=== PATIENT | female | born 1990 | race Caucasian/White ===

== ENCOUNTER 2016-10-10 16:55 | Emergency (ER) | payer OTHER ==
[2016-10-10] MEDS ORDERED: SODIUM CHLORIDE 0.9% 1,000 ML IV STA (19:17)
[2016-10-10] MEDS ORDERED: HYDROmorphone 1 MG/ML 1 ML SYRINGE IVP STA (19:17)
[2016-10-10] MEDS ORDERED: ONDANSETRON 4 MG/2 ML VIAL IVP STA (19:17)
--- NOTE | 2016-10-10 19:33 | ED ---
Abdominal Pain HPI - General Chief Complaint: Abdominal Pain Stated Complaint: Abdominal Pain Time Seen by Provider: 10/10/16 19:11 Source: patient, RN notes reviewed Mode of arrival: ambulatory Limitations: no limitations - History of Present Illness Initial Comments: 26-year-old female presents to the emergency Department chief complaint of epigastric abdominal pain. Patient states that she has had this pain for the last 2 days however she's been having pain for the last week or so. Patient states epigastric pain that radiates to the back. Patient states that she hasn' t had any nausea or vomiting with it. Patient states she does have a history of pancreatitis they've never found a cause for why she does have this. Patient states that she went to urgent care today and was referred here. Patient seen changes of bowel or bladder habits. Patient denies any fever chills with this. Patient states that gallbladder that was negative. Patient states that she was concerned due to the fact that she was on the pain that she thought that she should be evaluated.Patient denies any recent fever, chills, shortness of breath, chest pain, nausea vomiting, numbness or tingling, dysuria or hematuria, constipation or diarrhea, headaches or visual changes, or any other current symptoms. - Related Data Home Medications Medication Instructions Recorded Confirmed Biotin 5 mg PO HS 01/24/16 10/10/16 Cholecalciferol [Vitamin D3] 1,000 unit PO HS 01/24/16 10/10/16 Coconut Oil Tab 1 cap PO HS 01/24/16 10/10/16 Ferrous Sulfate [Iron (65 MG 325 mg PO HS 01/24/16 10/10/16 Elemental)] Ibuprofen [Motrin] 800 mg PO Q8H PRN 01/24/16 10/10/16 Multivitamins, Thera [Multivitamin] 1 tab PO HS 01/24/16 10/10/16 buPROPion HCL [Wellbutrin XL] 300 mg PO DAILY 10/10/16 10/10/16 lamoTRIgine [LaMICtal] 150 mg PO DAILY 10/10/16 10/10/16 Allergies Allergy/AdvReac Type Severity Reaction Status Date / Time No Known Allergies Allergy Verified 10/10/16 19:12 Review of Systems ROS Statement: Those systems with pertinent positive or pertinent negative responses have been documented in the HPI. ROS Other: All systems not noted in ROS Statement are negative. Past Medical History Additional Past Medical History / Comment(s): pancreatitis History of Any Multi-Drug Resistant Organisms: None Reported Past Surgical History: Section Past Psychological History: Anxiety, Depression Smoking Status: Current every day smoker Past Alcohol Use History: None Reported Past Drug Use History: Marijuana General Exam - General Exam Comments Initial Comments: General: The patient is awake and alert, in no distress, and does not appear acutely ill. Eye: Pupils are equal, round and reactive to light, extra-ocular movements are intact; there is normal conjunctiva bilaterally. No signs of icterus. Ears, nose, mouth and throat: There are moist mucous membranes. Neck: The neck is supple, there is no tenderness. Cardiovascular: There is a regular rate and rhythm. No murmur, rub or gallop is appreciated. Respiratory: Lungs are clear to auscultation, respirations are non-labored, breath sounds are equal. No wheezes, stridor, rales, or rhonchi. Gastrointestinal: Soft, non-distended, epigastric tenderness of the abdomen without masses or organomegaly noted. There is no rebound or guarding present. No CVA tenderness. Bowel sounds are unremarkable. Back: There is no tenderness to palpation in the midline. There is no obvious deformity. No rashes noted. Musculoskeletal: Normal ROM, no tenderness, There is no pedal edema. There is no calf tenderness or swelling. Sensation intact. Pulses equal bilaterally 2+. Neurological: CN II-XII intact, There are no obvious motor or sensory deficits. Coordination appears grossly intact. Speech is normal. Skin: Skin is warm and dry and no rashes or lesions are noted. Psychiatric: Cooperative, appropriate mood & affect, normal judgment. Limitations: no limitations Course Vital Signs 10/10/16 16:59 Temperature 97.8 F Pulse Rate 88 Respiratory 20 Rate Blood Pressure 121/74 O2 Sat by Pulse 99 Oximetry Medical Decision Making - Medical Decision Making 26-year-old female presents emergency department chief complaint abdominal pain. Patient was seen at [facility] beginning of the week and diagnosed with gastritis. Patient states she continues to have the same symptoms. At this time patient's lab work is reviewed. Patient has no evidence of pancreatitis. Patient has no white blood cell count. Patient's liver enzymes are stable as well. At this time she is feeling better with medications given. This time we discussed patient's symptoms are most consistent with gastritis. She does have a follow-up with GI. We discussed continue with that appointment. We did discuss return parameters. We discussed all the patient's questions and other etiologies. Patient stated that she understood she is in agreement plan all questions have been answered. She will be discharged. - Lab Data Result diagrams: 10/10/16 19:30 10/10/16 19:30 Lab Results 10/10/16 10/10/16 10/10/16 Range/Units 19:30 19:30 19:30 WBC 9.3 (3.8-10.6) k/uL RBC 4.43 (3.80-5.40) m/uL Hgb 13.9 (11.4-16.0) gm/dL Hct 41.9 (34.0-46.0) % MCV 94.6 (80.0-100.0) fL MCH 31.4 (25.0-35.0) pg MCHC 33.2 (31.0-37.0) g/dL RDW 11.9 (11.5-15.5) % Plt Count 297 (150-450) k/uL Neutrophils % 54 % Lymphocytes % 30 % Monocytes % 5 % Eosinophils % 8 % Basophils % 0 % Neutrophils # 5.1 (1.3-7.7) k/uL Lymphocytes # 2.8 (1.0-4.8) k/uL Monocytes # 0.4 (0-1.0) k/uL Eosinophils # 0.8 H (0-0.7) k/uL Basophils # 0.0 (0-0.2) k/uL Sodium 140 (137-145) mmol/L Potassium 4.0 (3.5-5.1) mmol/L Chloride 105 (98-107) mmol/L Carbon Dioxide 26 (22-30) mmol/L Anion Gap 9 mmol/L BUN 10 (7-17) mg/dL Creatinine 0.63 (0.52-1.04) mg/dL Est GFR (MDRD) Af Amer >60 (>60 ml/min/1.73 sqM) Est GFR (MDRD) Non-Af >60 (>60 ml/min/1.73 sqM) Glucose 89 (74-99) mg/dL Plasma Lactic Acid Zander (0.7-2.0) mmol/L Calcium 9.1 (8.4-10.2) mg/dL Total Bilirubin 1.0 (0.2-1.3) mg/dL AST 21 (14-36) U/L ALT 29 (9-52) U/L Alkaline Phosphatase 49 (38-126) U/L Total Protein 7.2 (6.3-8.2) g/dL Albumin 4.4 (3.5-5.0) g/dL Amylase 61 (30-110) U/L Lipase 180 (23-300) U/L Urine Color Yellow Urine Appearance Cloudy H (Clear) Urine pH 7.5 (5.0-8.0) Ur Specific [place] 1.015 (1.001-1.035) Urine Protein Negative (Negative) Urine Glucose (UA) Negative (Negative) Urine Ketones Negative (Negative) Urine Blood Negative (Negative) Urine Nitrate Negative (Negative) Urine Bilirubin Negative (Negative) Urine Urobilinogen <2.0 (<2.0) mg/dL Ur Leukocyte Esterase Trace H (Negative) Urine RBC 3 (0-5) /hpf Urine WBC 7 H (0-5) /hpf Ur Squamous Epith Cells 2 (0-4) /hpf Amorphous Sediment Rare H (None) /hpf Urine Bacteria Many H (None) /hpf Urine Mucus Few H (None) /hpf Urine HCG, Qual (Not Detectd) Urine Opiates Screen Not Detected (NotDetected) Ur Oxycodone Screen Not Detected (NotDetected) Urine Methadone Screen Not Detected (NotDetected) Ur Propoxyphene Screen Not Detected (NotDetected) Ur Barbiturates Screen Not Detected (NotDetected) U Tricyclic Antidepress Not Detected (NotDetected) Ur Phencyclidine Scrn Not Detected (NotDetected) Ur Amphetamines Screen Not Detected (NotDetected) U Methamphetamines Scrn Not Detected (NotDetected) U Benzodiazepines Scrn Not Detected (NotDetected) Urine Cocaine Screen Not Detected (NotDetected) U Marijuana (THC) Screen Detected H (NotDetected) 10/10/16 10/10/16 Range/Units 19:30 19:30 WBC (3.8-10.6) k/uL RBC (3.80-5.40) m/uL Hgb (11.4-16.0) gm/dL Hct (34.0-46.0) % MCV (80.0-100.0) fL MCH (25.0-35.0) pg MCHC (31.0-37.0) g/dL RDW (11.5-15.5) % Plt Count (150-450) k/uL Neutrophils % % Lymphocytes % % Monocytes % % Eosinophils % % Basophils % % Neutrophils # (1.3-7.7) k/uL Lymphocytes # (1.0-4.8) k/uL Monocytes # (0-1.0) k/uL Eosinophils # (0-0.7) k/uL Basophils # (0-0.2) k/uL Sodium (137-145) mmol/L Potassium (3.5-5.1) mmol/L Chloride (98-107) mmol/L Carbon Dioxide (22-30) mmol/L Anion Gap mmol/L BUN (7-17) mg/dL Creatinine (0.52-1.04) mg/dL Est GFR (MDRD) Af Amer (>60 ml/min/1.73 sqM) Est GFR (MDRD) Non-Af (>60 ml/min/1.73 sqM) Glucose (74-99) mg/dL Plasma Lactic Acid Zander 0.7 (0.7-2.0) mmol/L Calcium (8.4-10.2) mg/dL Total Bilirubin (0.2-1.3) mg/dL AST (14-36) U/L ALT (9-52) U/L Alkaline Phosphatase (38-126) U/L Total Protein (6.3-8.2) g/dL Albumin (3.5-5.0) g/dL Amylase (30-110) U/L Lipase (23-300) U/L Urine Color Urine Appearance (Clear) Urine pH (5.0-8.0) Ur Specific [place] (1.001-1.035) Urine Protein (Negative) Urine Glucose (UA) (Negative) Urine Ketones (Negative) Urine Blood (Negative) Urine Nitrate (Negative) Urine Bilirubin (Negative) Urine Urobilinogen (<2.0) mg/dL Ur Leukocyte Esterase (Negative) Urine RBC (0-5) /hpf Urine WBC (0-5) /hpf Ur Squamous Epith Cells (0-4) /hpf Amorphous Sediment (None) /hpf Urine Bacteria (None) /hpf Urine Mucus (None) /hpf Urine HCG, Qual Not Detected (Not Detectd) Urine Opiates Screen (NotDetected) Ur Oxycodone Screen (NotDetected) Urine Methadone Screen (NotDetected) Ur Propoxyphene Screen (NotDetected) Ur Barbiturates Screen (NotDetected) U Tricyclic Antidepress (NotDetected) Ur Phencyclidine Scrn (NotDetected) Ur Amphetamines Screen (NotDetected) U Methamphetamines Scrn (NotDetected) U Benzodiazepines Scrn (NotDetected) Urine Cocaine Screen (NotDetected) U Marijuana (THC) Screen (NotDetected) - Radiology Data Radiology results: report reviewed, image reviewed Disposition Clinical Impression: Gastritis Disposition: HOME SELF-CARE Condition: Stable Instructions: Gastritis (ED) Additional Instructions: Please use medication as discussed. Please follow up with family doctor if symptoms have not improved over the next two days. Please return to the emergency room if your symptoms increase or worsen or for any other concerns. Referrals: Daniel Kim DO [Primary Care Provider] - 1-2 days Mae Tracey MD [STAFF PHYSICIAN] - 1-2 days Time of Disposition: 20:33
[2016-10-10 19:48] LABS: Basophils % (A) 0 %; CH 31.6; CHCM 33.6; Eosinophils # (A) 0.8 k/uL (0-0.7); Eosinophils % (A) 8 %; HCT 41.9 % (34.0-46.0); HDW 2.32; HGB 13.9 gm/dL (11.4-16.0); Luc # (Auto) 0.24; Luc % (Auto) 3; Lymphocytes # (A) 2.8 k/uL (1.0-4.8); Lymphocytes % (A) 30 %; MCH 31.4 pg (25.0-35.0); MCHC 33.2 g/dL (31.0-37.0); MCV 94.6 fL (80.0-100.0); Monocytes # (A) 0.4 k/uL (0-1.0); Monocytes % (A) 5 %; Neutrophils # (A) 5.1 k/uL (1.3-7.7); Neutrophils % (A) 54 %; RBC 4.43 m/uL (3.80-5.40); RDW 11.9 % (11.5-15.5); WBC 9.3 k/uL (3.8-10.6); WBC (Perox) 9.65
[2016-10-10 19:52] LABS: Amorphous Sediment,Urine Rare /hpf; Appearance,Urine Cloudy (Clear); Bacteria,Urine Many /hpf; Bilirubin,Urine Negative (Negative); Glucose,Urine (UA) Negative (Negative); Ketones,Urine Negative (Negative); Leukocyte Esterase,Urine Trace (Negative); Mucus,Urine Few /hpf; Nitrite,Urine Negative (Negative); PH, Urine 7.5 (5.0-8.0); Particle Count 37470; Protein,Urine Negative (Negative); RBC,Urine 3 /hpf (0-5); Specific Gravity,Urine 1.015 (1.001-1.035); Squamous Epithelial Cell,Urine 2 /hpf (0-4); UA Billing (MACRO vs. MICRO) MICRO; Urobilinogen,Urine <2.0 mg/dL (<2.0); WBC,Urine 7 /hpf (0-5)
[2016-10-10] MEDS ORDERED: KETOROLAC 30 MG/ML 1 ML VIAL IVP STA (19:55)
[2016-10-10 20:01] LABS: ALT 29 U/L (9-52); AST 21 U/L (14-36); Alkaline Phosphatase 49 U/L (38-126); Amylase 61 U/L (30-110); Anion Gap 9 mmol/L; Blood Urea Nitrogen 10 mg/dL (7-17); Calcium 9.1 mg/dL (8.4-10.2); Carbon Dioxide 26 mmol/L (22-30); Chloride 105 mmol/L (98-107); Glucose 89 mg/dL (74-99); Non-African American GFR(MDRD) >60 (>60 ml/min/1.73 sqM); Sodium 140 mmol/L (137-145); Total Protein 7.2 g/dL (6.3-8.2)
--- NOTE | 2016-10-10 20:16 | XR ---
EXAMINATION TYPE: XR abdomen 2V DATE OF EXAM: 10/10/2016 8:09 PM COMPARISON: 06/07/2015 HISTORY: Epigastric pain for 2 weeks TECHNIQUE: 3 views FINDINGS: Bowel gas pattern is normal. There is no sign of intestinal obstruction or pneumoperitoneum . Lung bases are clear. Fecal pattern is normal. There are no pathologic calcifications over the kidn eys. IMPRESSION: Nonacute abdomen. No change.
[2016-10-10] MEDS ORDERED: MAG HYDROX/AL HYDROX/SIMETH 30 ML, HYOSCYAMINE ELIXIR 10 ML, CIMETIDINE HCL 300 MG PO STA ×3 (20:30)
[2016-10-10 21:01] VITALS: BP 113/72; PULSE 74; RESP 18; TEMP 98.2
== END 2016-10-10 21:05 | disposition home or self-care (01) ==
LOC: EC 16:55
DX: K29.70 Gastritis, unspecified, without bleeding (principal); F41.9 Anxiety disorder, unspecified; F32.9 Major depressive disorder, single episode, unspecified; F17.200 Nicotine dependence, unspecified, uncomplicated; Z79.899 Other long term (current) drug therapy
CPT/HCPCS: 36415; 80053; 82150; 83605; 83690; 85025; 81001; 81025; 87040; 80306; 87086; 74020; 99284; 96374; 96375 ×2; 96361; J1885

== ENCOUNTER 2018-02-16 16:06 | Observation (INO) | payer OTHER ==
[2018-02-16] MEDS ORDERED: KETOROLAC 30 MG/ML 1 ML VIAL IVP STA (16:24)
--- NOTE | 2018-02-16 16:54 | ED ---
General Adult HPI - General Chief complaint: Urogenital Stated complaint: KIDNEY STONE Time Seen by Provider: 02/16/18 16:11 Source: patient, EMS, RN notes reviewed Mode of arrival: EMS Limitations: no limitations - History of Present Illness Initial comments: 27-year-old female presents emergency Department via EMS from [facility] as a transfer for pyelonephritis, concern for septic stone. Patient states that she developed some dysuria and flank pain yesterday. States pain is greatest on the left compared to the right. She doesn't nausea no vomiting. She states that she went to urgent care initially and then [facility] who transferred secondary to no urology coverage. Patient states that she's had low -grade fever at home generalized does not feel well. She states is the worst pain she's ever had. - Related Data Home Medications Medication Instructions Recorded Confirmed Biotin 5 mg PO HS 01/24/16 10/10/16 Cholecalciferol [Vitamin D3] 1,000 unit PO HS 01/24/16 10/10/16 Coconut Oil Tab 1 cap PO HS 01/24/16 10/10/16 Ferrous Sulfate [Iron (65 MG 325 mg PO HS 01/24/16 10/10/16 Elemental)] Ibuprofen [Motrin] 800 mg PO Q8H PRN 01/24/16 10/10/16 Multivitamins, Thera [Multivitamin] 1 tab PO HS 01/24/16 10/10/16 buPROPion HCL [Wellbutrin XL] 300 mg PO DAILY 10/10/16 10/10/16 lamoTRIgine [LaMICtal] 150 mg PO DAILY 10/10/16 10/10/16 Allergies Allergy/AdvReac Type Severity Reaction Status Date / Time No Known Allergies Allergy Verified 02/16/18 16:13 Review of Systems ROS Statement: Those systems with pertinent positive or pertinent negative responses have been documented in the HPI. ROS Other: All systems not noted in ROS Statement are negative. Past Medical History Additional Past Medical History / Comment(s): pancreatitis, UTI History of Any Multi-Drug Resistant Organisms: None Reported Past Surgical History: Section Past Psychological History: Anxiety, Depression Smoking Status: Former smoker Past Alcohol Use History: None Reported Past Drug Use History: Marijuana General Exam Limitations: no limitations General appearance: alert, in no apparent distress Head exam: Present: atraumatic, normocephalic, normal inspection Neck exam: Present: normal inspection. Absent: tenderness, meningismus, lymphadenopathy Respiratory exam: Present: normal lung sounds bilaterally. Absent: respiratory distress, wheezes, rales, rhonchi, stridor Cardiovascular Exam: Present: regular rate, normal rhythm, normal heart sounds. Absent: systolic murmur, diastolic murmur, rubs, gallop, clicks GI/Abdominal exam: Present: soft, normal bowel sounds. Absent: distended, tenderness, guarding, rebound, rigid Back exam: Present: CVA tenderness (L). Absent: CVA tenderness (R) Neurological exam: Present: alert, oriented X3, CN II-XII intact Skin exam: Present: warm, dry, intact, normal color. Absent: rash Course Vital Signs 02/16/18 16:09 Temperature 99.1 F Pulse Rate 94 Respiratory 18 Rate Blood Pressure 131/79 O2 Sat by Pulse 98 Oximetry Disposition Clinical Impression: Pyelonephritis Disposition: ADMITTED IP TO THIS HOSP Condition: Stable Referrals: Torie Bhatt MD [Primary Care Provider] - 1-2 days
[2018-02-16] MEDS ORDERED: KETOROLAC 30 MG/ML 1 ML VIAL IVP PRN (16:58)
[2018-02-16] MEDS: MORPHINE SULFATE 2 MG/ML SYRINGE IV PRN ×2 (18:01→22:12)
[2018-02-16] MEDS: cefTRIAXone IN SWFI 1,000 MG/10 ML SYRINGE IVP SCH (18:04)
[2018-02-16] MEDS: SODIUM CHLORIDE 0.9% 1,000 ML IV SCH (18:05)
--- NOTE | 2018-02-16 20:11 | P.GSHP ---
History of Present Illness H&P Date: 02/16/18 The patient is a 27-year-old female who was transferred from the [facility] emergency room for evaluation of suspected left pyelonephritis, complicated by a possible ureteral calculus. The patient said that she developed dark colored urine which was malodorous yesterday approximately 3 PM. She has a history of urinary tract infection and assumed that she was developing another one. She took some [id number] Pyridium an approximate 4 PM but says that she developed increasing dysuria and left flank pain later in the evening. She said this morning she had a temperature of 101 to. She continued to have dysuria and flank pain which was worse on the left side. She also said she had a small amount of blood at urethral meatus after wiping. She originally went to an urgent care clinic in [facility] and was directed to go to the [facility] emergency room for further evaluation. The patient's temperature was 99 6 when she came to the emergency room. White blood count was 11,300. A voided urinalysis showed 50-100 red cells 20-50 white cells 11-15 epithelial cells and was positive for nitrite and had a pH of 8.1. The patient was given IV ceftriaxone. Computed tomography scan of the abdomen and pelvis showed minimal left hydronephrosis versus nonobstructive pyelocaliectasis. A 2 mm nonobstructive left renal calculus was present. There was no calculus identified along the course of the left ureter and the findings were felt to be consistent with possible passage of a calculus prior to the computed tomography scan. The patient's temperature was 99 1 when she arrived to the emergency room at [facility]. Due to the fever and possible obstruction was elected to admit her IV antibiotics. Since she has been admitted her temperature has remained less than 99. She continues to have some dysuria. The patient has no previous history of urolithiasis. Family history is significant in that her mother is had stones. She has had urinary tract infections in the past but has had no infections in the last year. She has no previous history of febrile urinary tract infection. - Constitutional Constitutional: Reports chills, Reports fever - Cardiovascular Cardiovascular: Denies high blood pressure, Denies shortness of breath - Respiratory Respiratory: Denies cough, Denies wheezing - Gastrointestinal Gastrointestinal: Reports as per HPI, Denies vomiting - Genitourinary (Female) Genitourinary: Reports as per HPI Past Medical History Additional Past Medical History / Comment(s): pancreatitis, UTI History of Any Multi-Drug Resistant Organisms: None Reported Past Surgical History: Section Past Anesthesia/Blood Transfusion Reactions: No Reported Reaction Past Psychological History: Anxiety, Depression Smoking Status: Former smoker Past Alcohol Use History: None Reported Past Drug Use History: Marijuana - Past Family History Mother History Unknown: Yes Additional Family Medical History / Comment(s): KIDNEY STONES Medications and Allergies Home Medications Medication Instructions Recorded Confirmed Type Ibuprofen [Motrin] 800 mg PO Q8H PRN 01/24/16 02/16/18 History Acetaminophen Tab [Tylenol Tab] 325 mg PO Q6H PRN 02/16/18 02/16/18 History Allergies Allergy/AdvReac Type Severity Reaction Status Date / Time No Known Allergies Allergy Verified 02/16/18 17:05 Surgical - Exam Vital Signs Temp Pulse Resp BP Pulse Ox 99.1 F 94 18 131/79 98 02/16/18 16:09 02/16/18 16:09 02/16/18 16:09 02/16/18 16:09 02/16/18 16:09 - General well developed, well nourished, no distress - ENT no hearing loss - Neck no masses, no lymphadectomy - Respiratory normal respiratory effort, clear to auscultation - Cardiovascular Rhythm: regular Abnormal Heart Sounds: no systolic murmur, no diastolic murmur - Abdomen Abdomen: soft, tender (Minimal tenderness in the left flank to palpation) Assessment and Plan Assessment: The patient's fever and left flank pain are suggestive of acute pyelonephritis. Her urinalysis is positive for nitrite but this could also have been related to taking Pyridium yesterday. There were some epithelial cells present within the urinalysis which could reflect vaginal contamination. The patient's computed tomography scan findings could have been related to passage of a small ureteral calculus prior to the computed tomography scan but this would not explain the patient's reported temperature of 101.2 earlier in the day. The patient has been started on ceftriaxone and this will be continued. She will be reassessed in the morning and the determination made at that time as to whether or not the patient will need to remain hospitalized for IV antibiotics.
[2018-02-17] MEDS: HYDROcodone/APAP 5-325MG 1 EACH TAB PO PRN ×3 (00:11→09:59)
[2018-02-17] MEDS: SODIUM CHLORIDE 0.9% 1,000 ML IV SCH (02:01)
[2018-02-17] MEDS: MORPHINE SULFATE 2 MG/ML SYRINGE IV PRN ×2 (02:02→08:25)
[2018-02-17] MEDS: cefTRIAXone IN SWFI 1,000 MG/10 ML SYRINGE IVP SCH (06:04)
[2018-02-17] MEDS ORDERED: ONDANSETRON 4 MG/2 ML VIAL IVP PRN (09:45)
--- NOTE | 2018-02-17 11:05 | P.PN ---
Progress Note - Text Progress Note Date: 02/17/18 The patient has remained afebrile since she was admitted. She continues to have some left flank and left lower quadrant discomfort. She is tolerating a diet. She also complains of pain with voiding but says that it's not really dysuria. I personally reviewed the patient's computed tomography scan of the abdomen which was performed yesterday at [facility]. There is no evidence of calculus along the course of the left ureter. Her only calculus present was a 2 mm nonobstructive calculus in the lower pole left kidney. It remains unclear whether the patient had acute left pyelonephritis as the cause of her pain and fever yesterday or whether this was all related to passage of a ureteral calculus. If the patient remains afebrile and comfortable she will be discharged later today on Ceftin pending results of the urine culture which was obtained at [facility].
[2018-02-17 12:20] VITALS: BP 113/65; PULSE 78; RESP 19; TEMP 98.1
== END 2018-02-17 15:51 | disposition home or self-care (01) ==
LOC: EC 16:06 → INTOOBSV 16:53 → 6PED 16:53 → UNDODISIN 02-17 15:51
PROVIDERS: ADMIT Urology; ATTEND Urology
DX: R10.32 Left lower quadrant pain (principal); R50.9 Fever, unspecified; R30.0 Dysuria; R82.99 Other abnormal findings in urine; N20.0 Calculus of kidney; F32.9 Major depressive disorder, single episode, unspecified; F41.9 Anxiety disorder, unspecified; Z87.19 Personal history of other diseases of the digestive system; Z87.891 Personal history of nicotine dependence; Z87.440 Personal history of urinary (tract) infections; Z84.1 Family history of disorders of kidney and ureter
CPT/HCPCS: 96375 ×2; 96376 ×2; 96374; 99285; 87040; 87086; G0378 ×2; J2405; J0696 ×2; J1885; J2270 ×2

== ENCOUNTER → 2019-06-30 | Outpatient (CLI) | payer OTHER ==
--- NOTE | 2019-07-01 07:21 | US ---
EXAMINATION TYPE: US transvaginal DATE OF EXAM: 06/30/2019 COMPARISON: NONE CLINICAL HISTORY: T83.32XA Displacement of intrauterine contraceptiv. IUD Placement. TECHNIQUE: Transvaginal (TV Date of LMP: 06/22/2019 EXAM MEASUREMENTS: Uterus: 8.2 x 4.7 x 5.0 cm Endometrial Stripe: .5 cm Right Ovary: 3.8 x 2.8 x 2.9 cm Left Ovary: 3.5 x 2.0 x 1.8 cm 1. Uterus: Anteverted IUD appears to be in place. 2. Endometrium: wnl 3. Right Ovary: Follicles seen largest measuring 1.8 x 1.1 x 1.5 cm. 4. Left Ovary: Follicles seen. 5. Bilateral Adnexa: wnl 6. Posterior cul-de-sac: wnl IMPRESSION: Satisfactory placement of the intrauterine device. Physiologic follicles of the ovaries.
== END | disposition home or self-care (01) ==
LOC: RADUSWWP 16:12
PROVIDERS: ATTEND Family Medicine
DX: T83.32XA Displacement of intrauterine contraceptive device, initial encounter (principal)
CPT/HCPCS: 76830

== ENCOUNTER → 2024-02-28 | Outpatient (CLI) | payer BC, OTHER ==
--- NOTE | 2024-02-28 12:52 | CA ---
Exercise Stress Test Report Name: Hannah Llamas Exam Date: 02/28/2024 09:18 Exam Location: [place] Stress Ht (in): 60 Wt (lb): 147 BSA: 1.64 Ordering Phys: Mt Conway DO Referring Phys: Sheri Curry [facility] Technologist: Kraig Conklin Age: 33 Gender: F : 1990 Procedure CPT: Indications: I45.9 RIGHT VENTRIC DELAY ICD-10 Codes: Patient History: Medications: SUBOXONE,,,, MULTIVITAMIN,,,, LIVER VITAMIN,,, Meds past 24 hrs: Pretest Chest Pain: STRESS TEST Jerod Protocol Exercise Duration (min:sec): 10:[address] Depressions (mm): Angina Score: Brumfield Score: Resting HR (bpm): 72 Peak HR (bpm): 170 Resting BP (mmHg): 109 / 57 Peak BP (mmHg): 183 / 77 MPHR: 185 Target HR: 157 % MPHR: 92 METS: 12.1 Total Dose: Peak Dose: Atropine: Double Product: 07600 BP Response: Stress Termination: TARGET HR REACHED/MAX EXERTION Stress Symptoms: NO SYMPTOMS Stress Summary: ECG ANALYSIS Resting ECG: Stress ECG: CONCLUSIONS Patient underwent exercise stress EKG with a Jerod protocol treadmill stress test. Patient exercised into Stage 3 for a total of 10 minutes reaching a total of 12.1 METS. Patient's maximum heart rate was 170 which represented 91% age-predicted maximum heart rate. Stress EKG findings: At baseline patient's EKG showed normal sinus rhythm, normal axis, T-wave inversion in lead 3. At peak exercise, EKG showed no significant change from baseline. Conclusions: 1. Normal EKG response to exercise without evidence of inducible ischemia. 2. Good exercise capacity. Dr. Benjie Reyna DO (Electronically Signed) Final Date: 28 February 2024 12:51
== END | disposition home or self-care (01) ==
LOC: RADNMMAIN 08:58
PROVIDERS: ATTEND Internal Medicine
DX: I45.9 Conduction disorder, unspecified (principal)
CPT/HCPCS: 93017

== ENCOUNTER → 2025-01-28 | Outpatient (CLI) | payer BC, OTHER ==
--- NOTE | 2025-01-29 08:04 | US ---
EXAMINATION TYPE: US transvaginal DATE OF EXAM: 01/28/2025 COMPARISON: 06/30/2019 CLINICAL INDICATION: Female, 34 years old with history of N39.46 MIXED INCONTINENCE; TECHNIQUE: Transvaginal (TV). Transabdominal grayscale sonographic images of the pelvis were acquired. Transvaginal sonographic im ages were medically necessary to better assess the following anatomy: Doppler imaging: Color Doppler Images were obtained. FINDINGS: EXAM MEASUREMENTS: Uterus: 9.4x5.4x6.2 cm Endometrial Stripe: 1.1 cm Right Ovary: 3.8x2.5x2.1 cm Left Ovary: 2.6x1.4x1.4 cm 1. Uterus: Anteverted wnl CX: Multiple cystic areas seen, Largest: 0.8x0.6x0.8cm 2. Endometrium: wnl 3. Right Ovary: Complex area seen: 1.6x1.0x1.9cm. Solid without shadowing. 4. Left Ovary: Anechoic area seen adj to Lt ovary: 1.1x0.9x1.0cm 5. Bilateral Adnexa: wnl 6. Posterior cul-de-sac: wnl IMPRESSION: 1. Solid 1.9 cm nonshadowing area within the right ovary. O-Rads 4. Additional workup recommended. G ynecology consult. 2. Nabothian cysts. O-RADS 2021 [email or web address] [facility], , 01/29/2025 8:02 AM
--- NOTE | 2025-01-29 08:09 | US ---
EXAMINATION TYPE: US bladder DATE OF EXAM: 01/28/2025 COMPARISON: NONE CLINICAL INDICATION: Female, 34 years old with history of N39.46 MIXED INCONTINENCE; TECHNIQUE: Grayscale and color doppler imaging of the bilateral kidneys and urinary bladder. FINDINGS: EXAM MEASUREMENTS: Prevoid volume 150.8 L. Post Void Residual Volume: 16.2 mL SCHEDULING MANAGER NOTES: Color Doppler performed to assess ureteral jets. Bilateral Jets seen: Yes Normal Post Void Residual (less than 50ml): 16.2 mL IMPRESSION: 1. No urinary retention 2. Unremarkable bladder ultrasound [facility], , 01/29/2025 8:07 AM
== END | disposition home or self-care (01) ==
LOC: RADUSWWP 15:26
PROVIDERS: ATTEND Internal Medicine
DX: N39.46 Mixed incontinence (principal); N88.8 Other specified noninflammatory disorders of cervix uteri; N83.8 Other noninflammatory disorders of ovary, fallopian tube and broad ligament
CPT/HCPCS: 76830; 76857